=== PATIENT | female | born 1950 | race Caucasian/White ===

== ENCOUNTER 2020-10-23 17:00 | Emergency (ER) | payer MEDICARE ==
[2020-10-23] MEDS ORDERED: Sodium Chloride 0.9% 500 ML IV ONE (18:18)
[2020-10-23] MEDS ORDERED: Sodium Chloride 0.9% 10 ML Syringe FLUSH PRN (18:18)
--- NOTE | 2020-10-23 19:46 | EDM.PDOC ---
ED HPI GENERAL MEDICAL PROBLEM - General Chief Complaint: Exposure to Heat or Cold Stated Complaint: POSS HEAT STROKE Time Seen by Provider: 10/23/20 17:49 Source of Information: Reports: Patient History Limitations: Reports: No Limitations - History of Present Illness INITIAL COMMENTS - FREE TEXT/NARRATIVE: 70-year-old female presents the emergency department today with complaints of heat exhaustion. She states that her and her are camping in [place] as they are from out of town somewhere in [place]. She states that they got to the campsite today and were setting up their camper. She feels as though she was adequately hydrated. She states she has drank 12 ounces of water and to bottles of orange juice today. She states that she was standing outside when she states her vision got "fuzzy "and she felt lightheaded. She states she was able to ambulate over to the car and sit down at that time. She denies any chest pain or shortness of breath associated with this. She denies any diaphoresis, nausea or vomiting. She denies any recent fever or chills. She denies any urinary symptoms. She denies any history of heart attack or stroke. She does carry a history of hypertension and high cholesterol. At the time of triage to the emergency department she states she was already starting to feel little bit better, however. 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 ED EXAM, GENERAL - Physical Exam Exam: See Below Exam Limited By: No Limitations General Appearance: Alert, WD/WN, No Apparent Distress Ears: Normal External Exam, Hearing Grossly Normal Nose: Normal Inspection Throat/Mouth: Normal Inspection, Normal Lips, Normal Voice, No Airway Compromise Head: Atraumatic Neck: Normal Inspection, Supple Respiratory/Chest: No Respiratory Distress, Lungs Clear, Normal Breath Sounds, No Accessory Muscle Use, Chest Non-Tender Cardiovascular: Normal Peripheral Pulses, Regular Rate, Rhythm, No Edema, No M urmur Peripheral Pulses: 2+: Radial (L), Radial (R) GI/Abdominal: Normal Bowel Sounds, Soft, Non-Tender, No Distention (Female) Exam: Deferred Rectal (Female) Exam: Deferred Back Exam: Normal Inspection Extremities: Normal Inspection, Normal Range of Motion, Non-Tender, No Pedal Edema, Normal Capillary Refill Neurological: Alert, Oriented, Normal Cognition Psychiatric: Normal Affect, Normal Mood Skin Exam: Warm, Dry, Intact, Normal Color, No Rash Lymphatic: No Adenopathy #1 Interpretation EKG Date: 10/23/20 Time: 18:33 Rhythm: NSR Rate (Beats/Min): 56 [place]: Normal P-Wave: Present QRS: Normal ST-T: Normal QT: Normal Comparison: NA - No Prior EKG EKG Interpretation Comments: Per Dr. Vann interpretation: Normal sinus rhythm at 56 bpm. Course - Vital Signs Text/Narrative:: Patient presents with "fuzzy vision" and lightheadedness after being out in the heat in [place] today. The patient and her are staying in a camper there. They arrived there today and they were setting up their camper when she states she felt dizzy and lightheaded. She states she is able to ambulate over to the car and get in and sit down. Upon assessment, the patient is awake alert and oriented. She denies any complaints. She states she is starting to feel little better. She feels she is adequately hydrated today however it is 100 degrees outside today. I have ordered labs to include a CBC, CMP, magnesium, and troponin. I have ordered for her to receive a 500 mL normal saline bolus and an EKG. Last Recorded V/S: Last Vital Signs Temp 97.3 F 10/23/20 18:03 Pulse 65 10/23/20 18:03 Resp 16 10/23/20 18:03 BP 122/74 10/23/20 18:03 Pulse Ox 100 10/23/20 18:03 - Orders/Labs/Meds Orders: Active Orders 24 hr Category Date Time Status EKG Documentation Completion [RC] STAT Care 10/23/20 18:17 Active CULTURE URINE [MREF] Stat Lab 10/23/20 19:05 Received Sodium Chloride 0.9% [Saline Flush] Med 10/23/20 18:18 Active 10 ml FLUSH ASDIRECTED PRN Saline Lock Insert [OM.PC] Stat Oth 10/23/20 18:18 Ordered Medication Orders Sodium Chloride (Sodium Chloride 0.9% 10 Ml Syringe) 10 ml FLUSH ASDIRECTED PRN PRN Reason: Keep Vein Open Last Admin: 10/23/20 18:52 Dose: 10 ml Documented by: JOEL Labs: Laboratory Tests 10/23/20 10/23/20 10/23/20 Range/Units 19:05 19:15 19:15 WBC 14.58 H (3.98-10.04) K/mm3 RBC 4.34 (3.98-5.22) M/mm3 Hgb 13.5 (11.2-15.7) gm/dl Hct 41.4 (34.1-44.9) % MCV 95.4 H (79.4-94.8) fl MCH 31.1 (25.6-32.2) pg MCHC 32.6 (32.2-35.5) g/dl RDW Std Deviation 43.9 (36.4-46.3) fL Plt Count 278 (182-369) K/mm3 MPV 10.8 (9.4-12.3) fl Neut % (Auto) 84.6 H (34.0-71.1) % Lymph % (Auto) 9.7 L (19.3-51.7) % [place] % (Auto) 4.9 (4.7-12.5) % Eos % (Auto) 0.3 L (0.7-5.8) Baso % (Auto) 0.2 (0.1-1.2) % Neut # (Auto) 12.33 H (1.56-6.13) K/mm3 Lymph # (Auto) 1.42 (1.18-3.74) K/mm3 [place] # (Auto) 0.72 H (0.24-0.36) K/mm3 Eos # (Auto) 0.04 (0.04-0.36) K/mm3 Baso # (Auto) 0.03 (0.01-0.08) K/mm3 Manual Slide Review Abnormal smear Sodium 143 (136-145) mEq/L Potassium 3.7 (3.5-5.1) mEq/L Chloride 107 (98-107) mEq/L Carbon Dioxide 26 (21-32) mEq/L Anion Gap 13.7 (5-15) BUN 21 H (7-18) mg/dL Creatinine 1.1 H (0.55-1.02) mg/dL Est Cr Clr Drug Dosing 3.21 mL/min Estimated GFR (MDRD) 49 (>60) mL/min BUN/Creatinine Ratio 19.1 H (14-18) Glucose 110 H (70-99) mg/dL Calcium 8.7 (8.5-10.1) mg/dL Magnesium 2.2 (1.8-2.4) mg/dL Total Bilirubin 0.3 (0.2-1.0) mg/dL AST 12 L (15-37) U/L ALT 20 (14-59) U/L Alkaline Phosphatase 72 (46-116) U/L Troponin I < 0.017 (0.00-0.056) ng/mL Total Protein 7.3 (6.4-8.2) g/dl Albumin 3.9 (3.4-5.0) g/dl Globulin 3.4 gm/dL Albumin/Globulin Ratio 1.2 (1-2) Urine Color Yellow (Yellow) Urine Appearance Clear (Clear) Urine pH 6.5 (5.0-8.0) Ur Specific [place] 1.025 (1.005-1.030) Urine Protein 1+ H (Negative) Urine Glucose (UA) Negative (Negative) Urine Ketones Negative (Negative) Urine Occult Blood Negative (Negative) Urine Nitrite Negative (Negative) Urine Bilirubin Negative (Negative) Urine Urobilinogen 0.2 (0.2-1.0) Ur Leukocyte Esterase Trace H (Negative) U Hyaline Cast (Auto) 50-75 H (0-5) /lpf Urine RBC 0-5 (0-5) /hpf Urine WBC 0-5 (0-5) /hpf Ur Squamous Epith Cells 0-5 (0-5) /hpf Urine Bacteria Few (FEW) /hpf Urine Mucus Moderate H (FEW) /hpf Meds: Medications Generic Name Dose Route Start Last Admin Trade Name Danyell PRN Reason Stop Dose Admin Sodium Chloride 10 ml 10/23/20 18:18 10/23/20 18:52 Sodium Chloride 0.9% 10 Ml Syringe FLUSH 10 ml ASDIRECTED PRN Administration Keep Vein Open Discontinued Medications Generic Name Dose Route Start Last Admin Trade Name Danyell PRN Reason Stop Dose Admin Sodium Chloride 500 mls @ 500 mls/hr 10/23/20 18:18 10/23/20 18:52 Normal Saline IV 10/23/20 19:17 500 mls/hr .BOLUS ONE Administration - Re-Assessments/Exams Free Text/Narrative Re-Assessment/Exam: 10/23/20 20:02 Hematology reveals a WBC of 14.58, hemoglobin 13.5, hematocrit 41.4, platelet count 278 Chemistry reveals a sodium of 143, potassium 3.7, carbon dioxide 26, anion gap 13.7, BUN 21, creatinine 1.1, BUN/creatinine ratio 19.1, glucose 110, magnesium 2.2, AST 12, ALT 20, troponin less than 0.017 Urinalysis shows 1+ protein, trace leukocyte esterase, 50-75 hyaline casts, urine WBC 0-5, moderate mucus, urine culture is pending. Patient states that she is feeling better after 500 mL normal saline bolus. Discussed the case with Dr. Vann, in regards to the patient's elevated white count. He agreed with me that this is likely due to dehydration. Patient denies any recent fever or chills. She denies any cough or shortness of breath. She denies any urinary symptoms. She will be discharged to home with recommendations that she drink plenty of fluids and stay out of the sun tomorrow yet. Departure - Departure Time of Disposition: 20:04 Disposition: Home, Self-Care 01 Condition: Good Clinical Impression: Dehydration - Discharge Information Instructions: Dehydration, Elderly, [id number] Referrals: PCP,Not In Area [Primary Care Provider] - Forms: ED Department Discharge Additional Instructions: You seen in the emergency department today after having a near fainting episode. Labs, EKG, and urinalysis were completed. You also received some IV fluids. Labs were essentially unremarkable however you did look slightly dehydrated. Recommend that you drink 8 ounces of water every hour while out in the sun. Recommend that tomorrow you stay out of the sun as much as possible and stay hydrated and get some rest. Follow-up with your primary care provider once you return home for recheck. Sepsis Event Note (ED) - Evaluation Sepsis Screening Result: No Definite Risk - Focused Exam Vital Signs: Vital Signs Temp Pulse Resp BP Pulse Ox 10/23/20 18:03 97.3 F 65 16 122/74 100 - My Orders Last 24 Hours: My Active Orders 10/23/20 18:17 EKG Documentation Completion [RC] STAT 10/23/20 18:18 Sodium Chloride 0.9% [Saline Flush] 10 ml FLUSH ASDIRECTED PRN Saline Lock Insert [OM.PC] Stat 10/23/20 19:05 CULTURE URINE [MREF] Stat - Assessment/Plan Last 24 Hours: My Active Orders 10/23/20 18:17 EKG Documentation Completion [RC] STAT 10/23/20 18:18 Sodium Chloride 0.9% [Saline Flush] 10 ml FLUSH ASDIRECTED PRN Saline Lock Insert [OM.PC] Stat 10/23/20 19:05 CULTURE URINE [MREF] Stat
== END 2020-10-23 20:35 | disposition home or self-care (01) ==
LOC: JD.ED 17:00
DX: E86.0 Dehydration (principal); E78.00 Pure hypercholesterolemia, unspecified; I10 Essential (primary) hypertension; Z79.82 Long term (current) use of aspirin; Z79.899 Other long term (current) drug therapy
CPT/HCPCS: 36415; 80053; 81001; 83735; 84484; 85025; 87086; 93005; 99284; J7030; 93010; 99283